=== PATIENT | female | born 2005 | race Caucasian/White ===

== ENCOUNTER 2025-05-12 19:43 | Emergency (ER) | payer OTHER, SELFPAY ==
[2025-05-12 19:44] VITALS: BP 122/80; PULSE 94; RESP 15; TEMP 36.6; O2SAT 100
--- NOTE | 2025-05-12 19:45 | ED_ITS ---
HPI - Dental/Oral General Chief complaint: Dental/Oral Stated complaint: Upper L Jaw pain Time Seen by Provider: 05/12/25 19:45 Source: patient Mode of arrival: ambulatory Limitations: no limitations History of Present Illness HPI Narrative: Patient is a 20-year-old female with left face pain that extends to her left oriental orthodox and her left mid face and left lower face over the past month on and off. The pain is debilitating and causing a lot of discomfort especially in the evening time. She already has epilepsy and on 3 seizure medicines. She has been having lots of twitching and changes similar to seizure firing and the neurologist has upped her dose of medication. No active dental complaints. Onset (ago): month(s) ( One) Duration: intermittent Severity: moderate Severity scale (1-10): 7 Relieving factors: other ( cold compress) Exacerbating factors: chewing, drinking fluids and swallowing Context: other ( patient having on and off symptoms of left face pain) Associated symptoms: other ( tight jaw and skin sensitivity at times) Treatment prior to arrival: topical analgesic, oral analgesic and other ( ice) Related Data Home Medications ?Medication ?Instructions ?Recorded ?Confirmed ?Last Taken ?Type Unable to Obtain Home Medications 05/12/25 05/12/25 Unknown History Allergies Allergy/AdvReac Type Severity Reaction Status Date / Time No Known Allergies Allergy Verified 05/12/25 20:31 Review of Systems Review of Systems: All systems reviewed & are unremarkable except as noted in HPI and below Constitutional: Constitutional: Reports no additional constitutional complaints Eyes: Eyes: Reports no additional eye complaints ENT: Reports system reviewed and no additional complaints, except as documented Cardiovascular: Cardiovascular: Reports no additional cardiovascular complaints Respiratory: Respiratory: Reports no additional respiratory complaints Gastrointestinal: Gastrointestinal: Reports no additional gastrointestinal complaints Genitourinary: Genitourinary: Reports no additional female genitourinary complaints Musculoskeletal: Musculoskeletal: Reports no additional musculoskeletal complaints Integumentary/Breasts: Skin/Breast: Reports system reviewed and no additional complaints, except as docu Neurologic: Reports system reviewed and no additional complaints, except as documented Psychiatric: Psychiatric: Reports no additional psychiatric complaints Endocrine: Endocrine: Reports no additional endocrine complaints Hematologic/Lymphatic: Hematologic/Lymphatic: Reports no additional hematologic/lymphatic complaints Allergic/Immunologic: Allergic/Immunologic: Reports no additional allergic/immunologic complaints Exam Const: General: healthy appearing Nutritional Appearance: well nourished Orientation/consciousness: patient oriented x3 HENMT: Head: normal to inspection Ears: external ears normal Face/Nose/Sinus: Normal external nose present Eyes: Conjunctivae: conjunctivae normal Pupils: Equal, round and reactive pupils present EOM: EOMs intact bilaterally Neck: Neck: normal visual inspection Chest: Chest palpation & inspection: normal inspection of the chest Resp: Effort & Inspection: normal respiratory effort and not labored Auscultation: clear to auscultation bilaterally and no crackles Cardio: Rate: regular rate Rhythm: regular rhythm Heart sounds: no murmurs GI: Inspection: non-distended GI Palp: Yes Soft to palpation and No Tenderness to palpation present (GI) Auscultation: normal bowel sounds : General: Yes bladder normal to palpation Back/Spine/Pelvis: Back: no CVA tenderness Skin: General skin exam: normal color Rashes: no rashes Wounds: no wounds Neuro: General: patient oriented x3, moves all extremities, no meningeal signs, no focal motor deficits and CN's II-XI intact bilaterally Cranial nerves: Yes Nystagmus not present Speech: normal speech Gait exam (Neuro): Normal gait present Other: GCS is 15 Extrem: General: normal to inspection Psych: Mental Status: mental status grossly normal Affect: normal affect Attitude: cooperative Course Vital Signs Vital signs: Vital Signs Temperature 36.6 C 05/12/25 19:44 Pulse Rate 94 05/12/25 19:44 Respiratory Rate 15 05/12/25 19:44 Blood Pressure 122/80 05/12/25 19:44 Pulse Oximetry 100 05/12/25 19:44 Oxygen Delivery Room Air 05/12/25 19:44 Temperature 36.6 C 05/12/25 19:44 Pulse Rate 94 05/12/25 19:44 Respiratory Rate 15 05/12/25 19:44 Blood Pressure 122/80 05/12/25 19:44 Pulse Oximetry 100 05/12/25 19:44 Oxygen Delivery Room Air 05/12/25 19:44 MDM - Dental/Oral MDM Narrative Medical decision making narrative: patient is a 20-year-old female with left face pain over the past month on and off and more so at nighttime. She has already epilepsy diagnosis with 3 antiseizure medications. Her neurologist follows her closely. She appears to have trigeminal neuralgia and we will add baclofen per up-to-date literature. I was avoiding any further seizure medications at this time. Drug drug interactions were acceptable with these medicines mixing. Discharge Plan Discharge Clinical Impression: Trigeminal neuralgia Patient Disposition: Home Condition: Stable Instructions: Trigeminal Neuralgia (ED) Additional Instructions: please try to use this medication to see if pain is relieved. You can talk to your neurologist and/or you can make an appointment with an learning specialist to deal with this problem. Patient Language: Yakut Prescriptions: New baclofen 5 mg tablet 5 mg PO Q8H PRN (Reason: pain) Qty: 30 0RF Rx Instructions: 1-2 tabs per dose No Action Unable to Obtain Home Medications Follow-up/Referrals: Paul Paul MD [Physician] - Time of Disposition: 20:32
--- OUTSIDE RECORDS SUMMARY | 2025-05-12 20:46 | XMS_ITS | Data Portability ---
Author Organization [facility], [address] [facility] ([place]) Address [address] [id number] Assessment Encounter Date Assessment Date Assessment LastModified by Organization Details LastModified Time 03/03/2024 03/03/2024 IMPRESSION: 1. Possible VASQUEZ. 2. She is on 3 seizure medicines and taking 2 of them incorrectly, so, since she is event free for quite some time, we are going to taper her off them and leave her on zonisamide alone. She went off the lamotrigine and started feeling strange. 3. She was also taking a lot of multivitamins at the time and this may have precipitated this. 4. She has not had a seizure since June 2021 and she is very concerned about how she feels. 5. VASQUEZ patients can sometimes feel somewhat strange and have odd jerks, etc., as part of their seizure disorder. PLAN: 1. She is going to wake a week or 2, and if she starts feeling strange again, then she will go back on the lamotrigine. She will take a half a pill once a day at night for 2 weeks and then take a full pill. 2. Continue the Keppra at once-a-day dosing. 3. Continue zonisamide at 200 mg once a day at night. 4. Will see her back in about 2 or 3 months. Will do an EEG at that time. 5. Overall, I do not think she needs to be on 3 seizure medicines, given that she has not had a seizure in 2-1/2 years, but she is very nervous and anxious about this so will leave as is for now and consider something different later perhaps. Will see how she is doing when she returns and do her EEG at that time. ils lsines Not available 03/29/2024 10:02:29 01/12/2025 01/12/2025 IMPRESSION/PLAN: 1. 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 2. She has been seizure-free for quite some time. 3. She is very worried about coming off the medicine. She is on 3 seizure medicines but does not want to change anything right, other than increase the dose of her lamotrigine. 4. We will change her lamotrigine extended release and increase it 200 mg once a day at night. 5. She only takes Keppra once a day, but she does okay on this, so we will leave it alone for now. 6. We will see how she is doing when she returns and go from there. lmp [email or web address] Not available 01/13/2025 07:51:39 Plan of Treatment Reminders Order Date Submit Date Provider Last Modified By Organization Details Last Modified Time Details Appointments Establish ed Patient 15.EST 2024 03:30P M Dr. Lucho Flores Not available Not available Not available Lab None recorded. Referral None recorded. Procedures None recorded. Surgeries None recorded. Imaging None recorded. Medication Orders levetirac etam 1,000 mg tablet 2024 025 [facility], [id number] [place], [address], 01/12/2025 16:38:44 zonisamid e 100 mg capsule 2024 025 [facility] [address], [address] [facility], [place], [address], 01/12/2025 16:39:15 lamotrigi ne ER 200 mg tablet,ex tended release 24 hr 2024 025 [email or web address] [facility] [address], [id number] [place], [address], 01/13/2025 08:57:08 Patient TargetsNo targets recorded. Patient InstructionsNo instructions recorded. Reason for Referral None Reported. Problems Name Problem SNOMED Code Status Onset Date Resolution Date Notes Provider Name and Address Organization Details Recorded Time Seizure disorder 598914719 Active 024 Josefina Castorena [facility] 4 10:59:43 Problem Notes None recorded. Medical Equipment None Reported. Allergies No known drug allergies Medications Name Sig Start Date Stop Date Status Note LastModified by Organization Details LastModified Time amoxicillin 500 mg capsule TAKE 1 CAPSULE BY MOUTH THREE TIMES DAILY FOR 10 DAYS 03/03 completed Not Available Not Available Not Available lamotrigine 150 mg tablet TAKE 1/2 (ONE-HALF ) TABLET BY MOUTH IN THE MORNING AND 1 AT BEDTIME 01/12 completed Not Available Not Available Not Available zonisamide 100 mg capsule TAKE 2 CAPSULES BY MOUTH AT BEDTIME active Not Available Not Available No t Available amoxicillin 875 mg tablet TAKE 1 TABLET BY MOUTH EVERY 12 HOURS FOR 7 DAYS 03/03 completed Not Available Not Available Not Available folic acid 1 mg tablet TAKE 1 TABLET BY MOUTH ONCE DAILY 01/12 completed Not Available Not Available Not Available levetiracet am 1,000 mg tablet TAKE 1 TABLET BY MOUTH ONCE DAILY AT BEDTIME active Not Available Not Available No t Available lamotrigine ER 200 mg tablet,exte nded release 24 hr Take 1 tablet every day by oral route at bedtime. 2024 active Not Available Not Available Not Avai lable Vitals Date Recorded Body height Body mass index (BMI) [Percentile] Per age and sex Body weight Heart rate Oxygen saturation Oxygen saturation in Arterial blood by Pulse oximetry Systolic And Diastolic Provider Name and Address Organization Details Last Updated DateTime 5 165.1 cm 91 % 93093.8 5 g 83 /min 100 % 100 % 131/74 mm[Hg] Lissesme Jeremi [facility] 5 16:35:37 Date Recorded Body height Body mass index (BMI) Body mass index (BMI) [Percentile] Per age and sex Body weight Heart rate Oxygen saturation Oxygen saturation in Arterial blood by Pulse oximetry Systolic And Diastolic Provider Name and Address Organization Details Last Updated DateTime 4 165.1 cm 26 kg/m2 83 % 55809.8 5 g 84 /min 99 % 99 % 122/82 mm[Hg] Mayra Arroyo [facility] 16:01:15 Social History None recorded. Functional Status None recorded. Mental Status None recorded. Family History Nothing Reported. Medical History No medical history recorded. Gynecological HistoryNo gynecological history recorded. Obstetrics History GPAL:G 0 P 0 0 0 0 Past Encounters Encounter ID Performer Location Encounter Start Date Encounter Closed Date Diagnosis/Indication Diagnosis SNOMED-CT Code Diagnosis ICD10 Code Diagnosis Note [id number] MD Lopez Felipe [facility] ([place]) [address] [facility],[address] [place] [id number] 03/03/2024 15:49:23 03/03/2024 16:19:48 Seizure disorder 050953765 G40.909 [id number] MD [facility] ([place]) [address] [place] [id number] 1 01/12/2025 16:21:42 01/12/2025 16:43:31 Seizure disorder 918109492 G40.909 Health Concerns Section Related Observation LastModified by Organization Detai ls LastModified Time None Recorded Concern Status LastModified by Organization Details LastModified Time None Recorded Advance Directives Directive None Recorded Payers Insurance Date Sequence Insurance Name Policy Number Policy Heller Covered Member ID Heller Member ID Guarantor Name 03/16/2025 1 [facility] [id number] Zakia Reyes Gomez [id number] Zakia Gomez 01/12/2025 1 [facility] [id number] Zakia Gomez [id number] Zakia Gomez Notes Date Note Type Note Provider Name and Address Organization Details Recorded Time 03/03/2024 text/html CHIEF COMPLAINT:Seizure disorder. HISTORY OF PRESENT ILLNESS:Ms. Gomez returns to clinic today. She is doing well. She has not had any seizure, but we tapered her off her lamotrigine and she started feeling weird, felt somewhat jerky. She did not want to come off her medicines. She has a history of what to me sounds like VASQUEZ. She saw Dr. Wild and then Dr. Arnett. She was on zonisamide 200 mg at night, Keppra 1000 mg once a day at night (she was supposed to take it twice a day but was not), and lamotrigine 150 mg once a day at night (she was supposed to take it twice a day but was only taking it once a day at night). We tapered her off he lamotrigine and she started feeling weird. She never tapered off the Keppra. She is still taking her zonisamide. She tells me she was taking a lot of multivitamins, etc., at the time, and she quit taking those and feels better. She is not sure if that was the cause. In any case, she is very concerned. She has not had a seizure since June of 2021.[facility] Lucho Flores MD [address] [place] [address], [phone], [facility] 03/29/2024 11:36:28 01/12/2025 text/html CHIEF COMPLAINT:Seizures . HISTORY OF PRESENT ILLNESS:Ms. Gomez returns to the clinic today. She has not had any seizures. She has been event-free for quite some time. She still feels somewhat strange and has jerks especially in the morning. She tolerates her medicine okay. She wants to increase her dose of it. Lucho Flores MD [address] [place] [address], [phone], [facility] 01/13/2025 11:39:26 OBGyn Episode No OBEpisode recorded.
[2025-05-12] MEDS: BACLOFEN 10 MG TABLET PO (20:47)
== END 2025-05-12 20:51 | disposition home or self-care (01) ==
PROVIDERS: Emergency Provider Emergency Medicine; Referring Provider Family Medicine
DX: G50.0 Trigeminal neuralgia (principal); G40.909 Epilepsy, unspecified, not intractable, without status epilepticus; Z79.899 Other long term (current) drug therapy
CPT/HCPCS: 99283; A9270